=== PATIENT | male | born 1985 | race Hispanic/Latino ===

== ENCOUNTER 2024-07-30 07:15 | Day surgery (SDC) | payer BC ==
[~2024-07-30] VITALS: Ht 167.6 cm; Wt 129.3 kg
[2024-07-30] VITALS (16 sets, daily range): BP systolic 96–130; BP diastolic 52–72; PULSE 56–64; RESP 15–18; TEMP 97.2–97.8
[2024-07-30] MEDS ORDERED: INDOMETHACIN 100 MG SUPP.RECT RC ONE (09:30)
[2024-07-30] MEDS ORDERED: PROP10TA10 PO (09:54)
[2024-07-30] MEDS ORDERED: FURO40TA5 PO (09:54)
[2024-07-30] MEDS ORDERED: OMEP40CA21 PO (09:54)
[2024-07-30] MEDS ORDERED: LACT10SO76 PO (09:55)
[2024-07-30] MEDS ORDERED: SPIR50TA5 PO (09:56)
[2024-07-30] MEDS: 0.9%NACL 1000ML 1,000 ML IV ONE (10:15)
[2024-07-30] MEDS ORDERED: FENTanyl CITRate PF 50 MCG/1 ML 2ML VIAL ONE (10:29)
[2024-07-30] MEDS ORDERED: SUCCINYLCHOLINE CHLORIDE 20 MG/ML 10 ML VIAL ONE (10:29)
[2024-07-30] MEDS ORDERED: proPOFol 10 MG/ML 20ML VIAL IV ONE (10:29)
[2024-07-30] MEDS ORDERED: ondanSETRON 4MG INJ ONE (10:29)
[2024-07-30] MEDS ORDERED: EPINEPHrine PF 1MG (1:1,000) 1 MG/ML AMP ONE (10:48)
[2024-07-30] MEDS ORDERED: IOHEXOL-350 50ML VIAL IV ONE (11:34)
== END 2024-07-30 12:58 | disposition home or self-care (01) ==
LOC: DAH 07:15 → ENDO 07:15
PROVIDERS: ATTEND Internal Medicine Gastroenterology
DX: R93.2 Abnormal findings on diagnostic imaging of liver and biliary tract (principal); R94.5 Abnormal results of liver function studies; K80.21 Calculus of gallbladder without cholecystitis with obstruction; I10 Essential (primary) hypertension; E66.01 Morbid (severe) obesity due to excess calories; E03.9 Hypothyroidism, unspecified; E78.5 Hyperlipidemia, unspecified; K74.60 Unspecified cirrhosis of liver; R18.8 Other ascites; K59.00 Constipation, unspecified; R12 Heartburn; Z68.42 Body mass index [BMI] 45.0-49.9, adult; K83.8 Other specified diseases of biliary tract; Z79.899 Other long term (current) drug therapy
CPT/HCPCS: 43274; 74328; 43261; J3010; J0330; J7030 ×2; J0171; J2704; J2405; Q9967; C1876; A4620; A4215; A4223; A4657; A7002; A4222; A4221; A4663; A4606; C1769; 43262; 74330; J3490

== ENCOUNTER 2024-08-12 08:37 | Day surgery (SDC) | payer BC ==
[~2024-08-12] VITALS: Ht 170.2 cm; Wt 122.5 kg
[2024-08-12] VITALS (10 sets, daily range): BP systolic 95–127; BP diastolic 51–69; PULSE 74–83; RESP 14–17; TEMP 97.1–98.1
[~2024-08-12 08:37] MED LIST: FURO40TA5 PO; LACT10SO76 PO; OMEP40CA21 PO; PROP10TA10 PO; SPIR50TA5 PO; SUCR1TAB2 PO
[2024-08-12] MEDS ORDERED: 0.9%NACL 1000ML 1,000 ML IV ONE (11:17)
[2024-08-12] MEDS ORDERED: proPOFol 10 MG/ML 20ML VIAL IV ONE (13:07)
== END 2024-08-12 14:48 | disposition home or self-care (01) ==
LOC: DAH 08:37 → ENDO 08:37
PROVIDERS: ATTEND Internal Medicine Gastroenterology
DX: R93.2 Abnormal findings on diagnostic imaging of liver and biliary tract (principal); R94.5 Abnormal results of liver function studies; K31.89 Other diseases of stomach and duodenum; K76.6 Portal hypertension; R93.5 Abnormal findings on diagnostic imaging of other abdominal regions, including retroperitoneum; K86.9 Disease of pancreas, unspecified; I86.4 Gastric varices; K83.9 Disease of biliary tract, unspecified; R97.8 Other abnormal tumor markers; R18.8 Other ascites; K80.20 Calculus of gallbladder without cholecystitis without obstruction; K59.00 Constipation, unspecified; K74.60 Unspecified cirrhosis of liver; I10 Essential (primary) hypertension; E78.5 Hyperlipidemia, unspecified; E03.9 Hypothyroidism, unspecified; E66.01 Morbid (severe) obesity due to excess calories; Z79.899 Other long term (current) drug therapy; Z68.41 Body mass index [BMI] 40.0-44.9, adult
CPT/HCPCS: 43237; J7030; J2704; A4620; A4215 ×2; A4223; A4222; A4221; A4663; A4606; J3490